=== PATIENT | male | born 1960 | race Caucasian/White ===

== ENCOUNTER 2023-01-13 08:51 | Emergency (ER) | payer OTHER | END 2023-01-13 12:23 | disposition home or self-care (01) | LOC: MW.ED 08:51 | DX: S42.018A Nondisplaced fracture of sternal end of left clavicle, initial encounter for closed fracture (principal); J44.9 Chronic obstructive pulmonary disease, unspecified; F17.210 Nicotine dependence, cigarettes, uncomplicated; Z79.899 Other long term (current) drug therapy; V63.5XXA Driver of heavy transport vehicle injured in collision with car, pick-up truck or van in traffic accident, initial encounter; Y92.410 Unspecified street and highway as the place of occurrence of the external cause | CPT/HCPCS: 71046; 71046-26; 72125; 72125-26; 73000-26-LT; 73000-LT; 99283; 99284 ==